=== PATIENT | female | born 1935 ===

== ENCOUNTER 2020-08-11 10:10 | Outpatient (CLI) | payer OTHER | END 2020-08-11 10:12 | disposition home or self-care (01) | LOC: NUCLEAR 10:10 | PROVIDERS: ATTEND Specialist | DX: I87.2 Venous insufficiency (chronic) (peripheral) (principal) ==

== ENCOUNTER → 2020-08-14 | Outpatient (CLI) | payer OTHER | END | disposition home or self-care (01) | LOC: NUCLEAR 11:00 | PROVIDERS: ATTEND Specialist | DX: I70.213 Atherosclerosis of native arteries of extremities with intermittent claudication, bilateral legs (principal) ==

== ENCOUNTER 2021-12-02 12:21 | Outpatient (CLI) | payer OTHER | END 2021-12-02 12:22 | disposition home or self-care (01) | LOC: LAB 12:21 | PROVIDERS: ATTEND Ophthalmology | DX: I11.9 Hypertensive heart disease without heart failure (principal); I10 Essential (primary) hypertension; Z98.41 Cataract extraction status, right eye ==

== ENCOUNTER 2021-12-07 13:42 | Outpatient (CLI) | payer OTHER | END 2021-12-07 13:45 | disposition home or self-care (01) | LOC: EKG 13:42 | PROVIDERS: ATTEND Ophthalmology | DX: I10 Essential (primary) hypertension (principal); I11.9 Hypertensive heart disease without heart failure ==